=== PATIENT | male | born 1965 | race Caucasian/White ===

== ENCOUNTER 2016-05-04 14:59 | Emergency (ER) | payer OTHER ==
[2016-05-04 15:13] VITALS: BP 130/83; TEMP 97.1; O2SAT 96
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
[2016-05-04] MEDS ORDERED: CLINDAMYCIN PHOSPHATE 150 MG/ML VIAL IM ONE (15:33)
[2016-05-04] MEDS ORDERED: TETANUS,DIPHTHERIA,PERTUSSIS 1 EA SYG IM ONE (15:35)
[2016-05-04] MEDS ORDERED: CLINDAMYCIN HCL CAP 150 MG CAP PO ONE (15:35)
== END 2016-05-04 16:02 | disposition home or self-care (01) ==
LOC: ER 14:59
DX: K04.01 Reversible pulpitis (principal); L03.211 Cellulitis of face; G89.29 Other chronic pain; M54.9 Dorsalgia, unspecified; Z87.891 Personal history of nicotine dependence; Z23 Encounter for immunization

== ENCOUNTER 2018-01-03 15:59 | Emergency (ER) | payer OTHER ==
[2018-01-03] MEDS ORDERED: LIDOCAINE 1% 10 ML VIAL INJ ONE (16:11)
[2018-01-03] MEDS ORDERED: SULFA/TRIMETH 800/160 (DS) TAB 1 EA TAB PO ONE (16:47)
--- NOTE | 2018-01-03 16:49 | ED.PDOC ---
History of Present Illness - General Chief Complaint: Laceration Time Seen by Provider: 01/03/18 16:46 Source: patient Exam Limitations: no limitations - History of Present Illness Initial Comments: The patient is a 52-year-old male presenting to the emergency room secondary to sustaining a 2 inch laceration to the right hand starting at the webbing between the first and second digit extending down the thenar eminence. There is no loss of sensation. No tendon laceration. Estimated blood loss is 10 cc. He moves the hand well. No other injuries. This did occur at work. Timing/Duration: momentarily Severity: moderate Improving Factors: nothing Worsening Factors: nothing Associated Symptoms: denies symptoms Allergies/Adverse Reactions: Allergies NO KNOWN ALLERGY Allergy (Unverified 11/24/13 12:47) Home Medications: Ambulatory Orders Sulfa/Trimeth 800/160 (Ds) Tab [Bactrim DS Tab] 1 ea PO BID #14 tab 01/03/18 Review of Systems - Review of Systems Constitutional: States: no symptoms reported EENTM: States: no symptoms reported Respiratory: States: no symptoms reported Cardiology: States: no symptoms reported Gastrointestinal/Abdominal: States: no symptoms reported Genitourinary: States: no symptoms reported Musculoskeletal: States: no symptoms reported Skin: States: see HPI Neurological: States: no symptoms reported Endocrine: States: no symptoms reported All other Systems: No Change from Baseline Past Medical History (General) - Patient Medical History Hx Stroke: No Hx Congestive Heart Failure: No Hx Diabetes: No Hx MRSA: No - Vaccination History Hx Tetanus, Diphtheria Vaccination: Yes - 2017 Hx Influenza Vaccination: No Hx Pneumococcal Vaccination: No - Social History Hx Tobacco Use: Yes Hx Alcohol Use: No Hx Substance Use: No Family Medical History - Family History Mother Family History: No Known Living Status: Physical Exam - Physical Exam General Appearance: Alert, Comfortable, No apparent distress Eye Exam: bilateral normal Ears, Nose, Throat: hearing grossly normal Neck: full range of motion Respiratory: no respiratory distress, no accessory muscle use Cardiovascular/Chest: normal peripheral pulses, no edema Peripheral Pulses: radial,right: 2+, radial,left: 2+ Rectal Exam: deferred Extremity: normal range of motion, no pedal edema, normal capillary refill 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 The patient received a dose of Bactrim. He reports that he is up-to- date on his tetanus shot. The wound was irrigated with 600 cc of sterile saline and then cleaned with hydrogen peroxide. Local anesthetic was provided with 1% lidocaine 6 cc. 8 simple sutures of 3-0 Ethilon were used for reapproximation. He does need to keep it clean and dry for at least 48 hours. After that he keep it covered with large Band-Aid and Neosporin. Sutures need to come out around 10-12 days. He does need to avoid overextending the hand as he could possibly pull out some sutures, due to the position of the cut. ER warnings were given. He does appear to be neurovascularly intact at this time. Departure - Departure Clinical Impression: Accidental laceration Disposition: Discharge to Home or Self Care Condition: Fair Departure Forms: ED Discharge - Pt. Copy, Patient Portal Self Enrollment Instructions: DI for Laceration Repair, DI for Laceration Repair -- Complex Suture Diet: regular diet Activity: no pushing/pulling with affected limb Referrals: Sherley Garcia NP [Primary Care Provider] - 1-2 Weeks Prescriptions: Sulfa/Trimeth 800/160 (Ds) Tab [Bactrim DS Tab] 1 ea PO BID #14 tab Home Medications: Ambulatory Orders Sulfa/Trimeth 800/160 (Ds) Tab [Bactrim DS Tab] 1 ea PO BID #14 tab 01/03/18 Additional Instructions: the patient is a 52-year-old male with a laceration to the right hand. The patient received a dose of Bactrim. He reports that he is up-to- date on his tetanus shot. The wound was irrigated with 600 cc of sterile saline and then cleaned with hydrogen peroxide. Local anesthetic was provided with 1% lidocaine 6 cc. 8 simple sutures of 3-0 Ethilon were used for reapproximation. He does need to keep it clean and dry for at least 48 hours. After that he keep it covered with large Band-Aid and Neosporin. Sutures need to come out around 10-12 days. He does need to avoid overextending the hand as he could possibly pull out some sutures, due to the position of the cut. ER warnings were given. He does appear to be neurovascularly intact at this time.
[2018-01-03] MEDS ORDERED: NEOMYCIN-BACITRACIN-POLYMYXIN 0.9 GM UD TOP ONE (16:56)
[2018-01-03 17:13] VITALS: BP 160/69; TEMP 98.7; O2SAT 95
== END 2018-01-03 17:04 | disposition home or self-care (01) ==
LOC: ER 15:59
DX: S61.411A Laceration without foreign body of right hand, initial encounter (principal); X58.XXXA Exposure to other specified factors, initial encounter; Y92.69 Other specified industrial and construction area as the place of occurrence of the external cause; Y99.0 Civilian activity done for income or pay; Z87.891 Personal history of nicotine dependence

== ENCOUNTER 2019-03-26 17:36 | Emergency (ER) | payer OTHER ==
[2019-03-26] MEDS: IPRATROPIUM/ALBUTEROL 3 ML VIAL NEB ONE (18:11)
--- NOTE | 2019-03-26 18:15 | CT ---
EXAM DESCRIPTION: CT head without contrast CLINICAL HISTORY: syncope, vision changes COMPARISON: None TECHNIQUE: Noncontrast head CT was performed with routine protocol. FINDINGS: Normal jeong-white matter differentiation. Ventricles and sulci are normal for age. No high density hemorrhage, focal edema or shift of the midline. No sulcal effacement. Normal orbital contents. Basilar cisterns appear clear. Intact calvarium with no fracture or lytic lesion. Normal aeration of tympanic cavities and mastoid air cells. Fluid levels in the bilateral maxillary sinuses with pansinusitis with extensive mucosal thickening. Patchy opacification of ethmoid air cells.. Skull base appears intact. Symmetrical internal auditory canals. Cerumen accumulation in the right external auditory canal. Coronal and sagittal reformatted images confirm the findings. IMPRESSION: Paranasal pansinusitis. Otherwise no acute intracranial pathologic process. This exam was performed according to our departmental dose-optimization program, which includes automated exposure control, adjustment of the mA and/or kV according to patient size and/or use of iterative reconstruction technique. Total DLP equals 859.97 mGycm. Electronically signed by: Jose Daniel Ayers MD 03/26/2019 6:14 PM [facility]
--- NOTE | 2019-03-26 18:16 | RAD ---
EXAM DESCRIPTION: Chest,1 View CLINICAL HISTORY: 54 years Male, syncope, hypoxia COMPARISON: Previous 2 view chest x-ray September 06, 2014 TECHNIQUE: AP portable chest. FINDINGS: Heart size is normal with normal pulmonary vascularity. No consolidating infiltrate. No pulmonary mass or worrisome nodule. No pneumothorax or pleural effusion. Bones are unremarkable. IMPRESSION: No acute process is identified in the chest. Electronically signed by: Jose Daniel Ayers MD 03/26/2019 6:14 PM [facility]
[2019-03-26] MEDS: IBUPROFEN 200 MG TAB PO ONE (18:38)
[2019-03-26] MEDS: POTASSIUM CHLORIDE ELIXIR 20 MEQ/15 ML UD PO ONE ×2 (18:38→20:41)
[2019-03-26] MEDS: SODIUM CHLORIDE 0.9% 1000ML 1,000 ML IVS ONE ×2 (19:00→20:11)
[2019-03-26] MEDS ORDERED: SODIUM CHLORIDE 0.9% 100ML 100 ML IVPB ONE (19:37)
[2019-03-26] MEDS ORDERED: PIPERACILLIN/TAZOBACTAM 3.375 GM VIAL IVPB ONE (19:37)
[2019-03-26] MEDS: PIPERACILLIN/TAZOBACTAM 3.375 GM in SODIUM CHLORIDE 0.9% 100ML 100 ML IVPB ONE (19:47)
[2019-03-26] MEDS: predniSONE 20 MG TAB PO ONE (19:47)
[2019-03-26] MEDS: NICOTINE PATCH 21 MG TD ONE (19:48)
[2019-03-26] MEDS: ASPIRIN TABLET 325 MG TAB PO ONE (19:57)
--- NOTE | 2019-03-26 20:36 | ED.PDOC ---
History of Present Illness - General Chief Complaint: Syncope/Near Syncope Stated Complaint: Pt has syncopal event and fell Time Seen by Provider: 03/26/19 17:43 Source: patient Exam Limitations: no limitations - History of Present Illness Initial Comments: The patient is a 54-year-old male presented emergency room after a syncopal episode while walking in his yard at home. The patient has been sick for about the last week with a cough and some shortness of breath as well as fever and a mild headache. He denies nausea or vomiting. He does report poor oral intake. He does admit to methamphetamine use 2 days ago. He has smoked for many years and does still smoke. The patient apparently passed out and may have had some mild seizure activity for a period of a minute or 2. No history of any epilepsy. The patient does look markedly dehydrated and upon initial evaluation by EMS did have some significant tachycardia with significant initially. By the time he arrived here he had already had about a half of a liter and. He was mentating well by the time he arrived here. EMS did report some mild confusion upon their arrival at his home. No chest pain. Oxygen saturations ranged from 88 to 95%. He does have some scattered wheezes. No focal neurological deficits. Poor dentition. No meningeal signs. Timing/Duration: momentarily Severity: severe Improving Factors: nothing Worsening Factors: nothing Associated Symptoms: cough, fever/chills, headaches, loss of appetite, malaise, seizure - Possible, shortness of breath, syncope, weakness - Generalized Allergies/Adverse Reactions: Allergies NO KNOWN ALLERGY Allergy (Verified 03/26/19 17:58) Home Medications: Ambulatory Orders Albuterol Inhaler [Ventolin Hfa Inhaler] 2 puff INH Q4H PRN #1 inh 03/26/19 Amoxicillin & Pot Clavulanate [Augmentin Tab] 875 mg PO BID #14 tab 03/26/19 predniSONE [Prednisone] 20 mg PO DAILY #5 tab 03/26/19 Review of Systems - Review of Systems Constitutional: States: fever, malaise EENTM: States: nose congestion Respiratory: States: cough, short of breath, wheezing Cardiology: States: no symptoms reported Gastrointestinal/Abdominal: States: no symptoms reported Genitourinary: States: no symptoms reported Musculoskeletal: States: no symptoms reported Skin: States: no symptoms reported Neurological: States: headache Endocrine: States: no symptoms reported All other Systems: No Change from Baseline Past Medical History (General) - Patient Medical History Hx Stroke: No Hx of COPD: No Hx Cardiac Disorders: No Hx Congestive Heart Failure: No Hx Hypertension: No Hx Diabetes: No Hx Cancer: No Hx MRSA: No Surgical History: cholecystectomy, other - Vaccination History Hx Tetanus, Diphtheria Vaccination: No Hx Influenza Vaccination: No Hx Pneumococcal Vaccination: No - Social History Hx Tobacco Use: Yes Hx Alcohol Use: No Hx Substance Use: No Hx Substance Use Treatment: No Hx Depression: No - Female History Patient is a Female of Child Bearing Age (10 -59 yrs old): No Patient : No Family Medical History - Family History Mother Family History: No Known Living Status: Physical Exam - Physical Exam General Appearance: Alert, No apparent distress, Unkempt Eye Exam: bilateral normal Ears, Nose, Throat: hearing grossly normal, nasal congestion, other - Poor dentition Neck: full range of motion, supple Respiratory: no respiratory distress, no accessory muscle use, wheezing Cardiovascular/Chest: normal peripheral pulses, regular rate, rhythm, no edema Peripheral Pulses: radial,right: 2+, radial,left: 2+, dorsalis pedis,right: 2+, dorsalis pedis,left: 2+ Gastrointestinal/Abdominal: non tender, soft Rectal Exam: deferred Back Exam: no CVA tenderness, no vertebral tenderness Extremity: normal range of motion, non-tender, normal inspection, no pedal edema, normal capillary refill 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 The source of this is likely multifactorial. The patient is severely dehydrated and has received a couple liters of IV fluids. Correspondingly he did have a significant lactic acidosis. No significant arrhythmia has been noted on telemetry here. He is mentating well at this time. He does appear to be having a COPD exacerbation. He also has a sinusitis as noted by CT scan. He is going to be written for Augmentin as an antibiotic, prednisone as a steroid and a Ventolin inhaler for as needed use for his lungs. He also has a mildly low potassium and was given 2 doses of potassium here. This needs to be followed with his primary care doctor. Additionally he does have a mildly elevated TSH that needs to be followed with his primary care doctor as well. Patient also needs to avoid methamphetamine abuse. This may have contributed as well to the syncopal episode. He needs to keep himself hydrated. He needs to follow-up with his primary care doctor next week. It has been recommended that the patient stay for additional testing and monitoring overnight. He reports that he is unable to do that at this time. Risks have been explained. ER warnings were given. chi yung [id number] - Results/Orders Results/Orders: 2 view chest x-ray shows no acute changes. No focal pneumonia. Chronic emphysematous changes. Head CT without contrast shows no acute intracranial pathology. He does have some significant sinusitis. EKG shows normal sinus rhythm 88 bpm. Normal axis. Normal R wave progression. Borderline LVH criteria. No ST segment or T wave changes indicative of acute ischemia. Laboratory Tests 03/26/19 03/26/19 03/26/19 17:15 17:15 17:15 WBC 7.3 RBC 5.11 Hgb 15.7 Hct 47.2 MCV 92.5 MCH 30.7 MCHC 33.2 RDW 13.4 Plt Count 241 MPV 8.3 Absolute Neuts (auto) 4.40 Absolute Lymphs (auto) 1.80 Absolute Monos (auto) 0.90 H Absolute Eos (auto) 0.20 Absolute Basos (auto) 0.00 Neutrophils % 60.3 Lymphocytes % 24.7 Monocytes % 11.7 H Eosinophils % 2.8 Basophils % 0.5 PT INR PTT (SP) D-Dimer, Quantitative pCO2 pO2 HCO3 ABG pH ABG O2 Saturation ABG Base Excess ABG Deoxyhemoglobin Oxyhemoglobin % Carboxyhemoglobin % Methemoglobin % Sat Calc Total Hemoglobin Sodium 138 Potassium 3.3 L Chloride 100 L Carbon Dioxide 17 L Anion Gap 24.3 H BUN 17 Creatinine 1.17 BUN/Creatinine Ratio 14.5 Random Glucose 136 H Serum Osmolality 279.3 Lactic Acid Calcium 9.9 Magnesium Total Bilirubin 0.7 AST 27 ALT 12 Alkaline Phosphatase 72 Creatine Kinase 89 CK-MB (CK-2) 4.3 CK-MB (CK-2) % Not Reportable Troponin I < 0.02 B-Natriuretic Peptide 12.6 Serum Total Protein 8.3 H Albumin 4.7 Globulin 3.6 H Albumin/Globulin Ratio 1.3 TSH Urine Color Urine Appearance Urine pH Ur Specific Guild Urine Protein Urine Glucose (UA) Urine Ketones Urine Blood Urine Nitrite Urine Bilirubin Urine Urobilinogen Ur Leukocyte Esterase Urine RBC Urine WBC Ur Epithelial Cells Urine Bacteria Urine Opiates Screen Urine Barbiturates Ur Phencyclidine Scrn U Amphetamin/Meth Scrn U Benzodiazepines Scrn U Cocaine Metab Screen U Cannabinoids Screen Ethyl Alcohol < 5.40 03/26/19 03/26/19 03/26/19 17:15 17:15 18:12 WBC RBC Hgb Hct MCV MCH MCHC RDW Plt Count MPV Absolute Neuts (auto) Absolute Lymphs (auto) Absolute Monos (auto) Absolute Eos (auto) Absolute Basos (auto) Neutrophils % Lymphocytes % Monocytes % Eosinophils % Basophils % PT 11.1 H INR 1.12 PTT (SP) 22.7 D-Dimer, Quantitative < 100 L pCO2 pO2 HCO3 ABG pH ABG O2 Saturation ABG Base Excess ABG Deoxyhemoglobin Oxyhemoglobin % Carboxyhemoglobin % Methemoglobin % Sat Calc Total Hemoglobin Sodium Potassium Chloride Carbon Dioxide Anion Gap BUN Creatinine BUN/Creatinine Ratio Random Glucose Serum Osmolality Lactic Acid 3.3 H* Calcium Magnesium 2.0 Total Bilirubin AST ALT Alkaline Phosphatase Creatine Kinase CK-MB (CK-2) CK-MB (CK-2) % Troponin I B-Natriuretic Peptide Serum Total Protein Albumin Globulin Albumin/Globulin Ratio TSH 9.26 H Urine Color Urine Appearance Urine pH Ur Specific Guild Urine Protein Urine Glucose (UA) Urine Ketones Urine Blood Urine Nitrite Urine Bilirubin Urine Urobilinogen Ur Leukocyte Esterase Urine RBC Urine WBC Ur Epithelial Cells Urine Bacteria Urine Opiates Screen Urine Barbiturates Ur Phencyclidine Scrn U Amphetamin/Meth Scrn U Benzodiazepines Scrn U Cocaine Metab Screen U Cannabinoids Screen Ethyl Alcohol 03/26/19 03/26/19 03/26/19 18:45 20:09 20:10 WBC RBC Hgb Hct MCV MCH MCHC RDW Plt Count MPV Absolute Neuts (auto) Absolute Lymphs (auto) Absolute Monos (auto) Absolute Eos (auto) Absolute Basos (auto) Neutrophils % Lymphocytes % Monocytes % Eosinophils % Basophils % PT INR PTT (SP) D-Dimer, Quantitative pCO2 41 pO2 65 L HCO3 26.1 ABG pH 7.409 ABG O2 Saturation 92.5 L ABG Base Excess 1.3 ABG Deoxyhemoglobin 7.3 H Oxyhemoglobin % 90.4 L Carboxyhemoglobin % 1.5 Methemoglobin % Sat 0.8 Calc Total Hemoglobin 14.7 Sodium Potassium Chloride Carbon Dioxide Anion Gap BUN Creatinine BUN/Creatinine Ratio Random Glucose Serum Osmolality Lactic Acid Calcium Magnesium Total Bilirubin AST ALT Alkaline Phosphatase Creatine Kinase CK-MB (CK-2) CK-MB (CK-2) % Troponin I B-Natriuretic Peptide Serum Total Protein Albumin Globulin Albumin/Globulin Ratio TSH Urine Color Dk yellow Urine Appearance Clear Urine pH 6.0 Ur Specific Guild >= 1.030 Urine Protein 30 Urine Glucose (UA) Negative Urine Ketones Negative Urine Blood Negative Urine Nitrite Negative Urine Bilirubin Negative Urine Urobilinogen 1.0 Ur Leukocyte Esterase Negative Urine RBC 0-1 Urine WBC 0-1 Ur Epithelial Cells 0 Urine Bacteria 0 Urine Opiates Screen Negative Urine Barbiturates Negative Ur Phencyclidine Scrn Negative U Amphetamin/Meth Scrn Positive H U Benzodiazepines Scrn Negative U Cocaine Metab Screen Negative U Cannabinoids Screen Negative Ethyl Alcohol - EKG/XRAY/CT CT Ordered: Yes Departure - Departure Clinical Impression: COPD with exacerbation, Lactic acidosis, Dehydration, Methamphetamine abuse, Hypokalemia, Sinusitis chronic, ethmoidal Syncope Qualifiers: Syncope type: unspecified Qualified Code(s): R55 - Syncope and collapse Disposition: Discharge to Home or Self Care Condition: Fair Departure Forms: ED Discharge - Pt. Copy, Patient Portal Self Enrollment Instructions: DI for Syncope in Adults (Fainting), Drug Abuse and Drug Addiction (DC), Exacerbation of COPD, Dehydration, Adult (DC), Hypokalemia (DC) Diet: regular diet Activity: increase activity as tolerated Referrals: Sherley Garcia NP [Primary Care Provider] - 1-2 Weeks Prescriptions: Albuterol Inhaler [Ventolin Hfa Inhaler] 2 puff INH Q4H PRN #1 inh PRN Reason: Shortness Of Breath Amoxicillin & Pot Clavulanate [Augmentin Tab] 875 mg PO BID #14 tab predniSONE [Prednisone] 20 mg PO DAILY #5 tab Home Medications: Ambulatory Orders Albuterol Inhaler [Ventolin Hfa Inhaler] 2 puff INH Q4H PRN #1 inh 03/26/19 Amoxicillin & Pot Clavulanate [Augmentin Tab] 875 mg PO BID #14 tab 03/26/19 predniSONE [Prednisone] 20 mg PO DAILY #5 tab 03/26/19 Additional Instructions: The patient is a 54-year-old male presenting secondary to a syncopal episode. The source of this is likely multifactorial. The patient is severely dehydrated and has received a couple liters of IV fluids. Correspondingly he did have a significant lactic acidosis. No significant arrhythmia has been noted on telemetry here. He is mentating well at this time. He does appear to be having a COPD exacerbation. He also has a sinusitis as noted by CT scan. He is going to be written for Augmentin as an antibiotic, prednisone as a steroid and a Ventolin inhaler for as needed use for his lungs. He also has a mildly low potassium and was given 2 doses of potassium here. This needs to be followed with his primary care doctor. Additionally he does have a mildly elevated TSH that needs to be followed with his primary care doctor as well. Patient also needs to avoid methamphetamine abuse. This may have contributed as well to the syncopal episode. He needs to keep himself hydrated. He needs to follow-up with his primary care doctor next week. It has been recommended that the patient stay for additional testing and monitoring overnight. He reports that he is unable to do that at this time. Risks have been explained. ER warnings were given.
[2019-03-26 21:41] VITALS: BP 168/99
[2019-03-26 21:44] VITALS: TEMP 98.9; O2SAT 97
== END 2019-03-26 21:10 | disposition home or self-care (01) ==
LOC: ER 17:36
DX: R55 Syncope and collapse (principal); J44.1 Chronic obstructive pulmonary disease with (acute) exacerbation; E86.0 Dehydration; F15.10 Other stimulant abuse, uncomplicated; E87.6 Hypokalemia; E87.2 Acidosis; J32.2 Chronic ethmoidal sinusitis; F17.200 Nicotine dependence, unspecified, uncomplicated
CPT/HCPCS: 36415; 36600; 70450; 71045; 80053; 80307; 80320; 81001; 82550; 82553; 82803; 83605; 83735; 83880; 84443; 84484; 85025; 85379; 85610; 85730; 87040; 87502; 93005; 94640; J2543; J7030; J7050; J7512; J7620